=== PATIENT | male | born 1990 | race African-American/Black ===

== ENCOUNTER 2016-11-07 18:38 | Emergency (ER) | payer OTHER ==
[~2016-11-07] VITALS: Ht 170.2 cm; Wt 70.0 kg
[~2016-11-07 18:38] MED LIST: BENA25TA8 PO; CEPH500T PO
[2016-11-07 18:40] VITALS: BP 144/75; PULSE 72; RESP 15; TEMP 98; O2SAT 99
[2016-11-07] MEDS ORDERED: TETANUS/DIPHTHERIA TOXOID ADULT 0.5 ML VIAL IM ONE (19:45)
[2016-11-07] MEDS ORDERED: IBUPROFEN 800 MG TAB PO ONE (19:45)
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
== END 2016-11-07 21:17 | disposition home or self-care (01) ==
LOC: NEPK 18:38
DX: S80.02XA Contusion of left knee, initial encounter (principal); V43.52XA Car driver injured in collision with other type car in traffic accident, initial encounter; Y92.481 Parking lot as the place of occurrence of the external cause; Z72.0 Tobacco use
CPT/HCPCS: 73560; 99283

== ENCOUNTER 2017-06-26 11:43 | Emergency (ER) | payer SELFPAY ==
[~2017-06-26] VITALS: Ht 170.2 cm; Wt 80.0 kg
[2017-06-26 11:45] VITALS: BP 139/68; PULSE 64; RESP 17; O2SAT 98
[2017-06-26] MEDS ORDERED: TETANUS/DIPHTHERIA TOXOID ADULT 0.5 ML VIAL IM ONE (12:45)
[2017-06-26] MEDS ORDERED: ACETAMINOPHEN/HYDROcodone 325 MG/5 MG TAB PO ONE (12:45)
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
[2017-06-26] MEDS ORDERED: DALBAVANCIN INJ 1,500 MG in DEXTROSE 5% IN WATE 500 ML INJ 500 ML IV STA ×2 (13:04)
[2017-06-26] MEDS ORDERED: ASP: No known hypersensitivity to Vanco, Telavancin, Dalbavancin OTHER ONE (13:15)
[2017-06-26] MEDS ORDERED: ASP: Only reason for admit - IV antibiotics OTHER ONE (13:15)
[2017-06-26] MEDS ORDERED: ASP: Does not meet inpatient admission criteria OTHER ONE (13:15)
[2017-06-26] MEDS ORDERED: ASP: Location of Dalbavancin administration OTHER ONE (13:15)
[2017-06-26] MEDS ORDERED: MISCELLANEOUS PHARMACY INFORMATION XX ONE (13:15)
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
[2017-06-26] MEDS ORDERED: IBUP1TAB7 PO (14:11)
[2017-06-26] MEDS ORDERED: TRAM50TA PO (14:11)
[2017-06-26] MEDS ORDERED: ROBA500T PO (14:11)
== END 2017-06-26 14:49 | disposition home or self-care (01) ==
LOC: NEPD 11:43
DX: S02.2XXA Fracture of nasal bones, initial encounter for closed fracture (principal); S00.83XA Contusion of other part of head, initial encounter; R07.81 Pleurodynia; Z23 Encounter for immunization; Z72.0 Tobacco use; Y33.XXXA Other specified events, undetermined intent, initial encounter
CPT/HCPCS: 70450; 70486; 71045; 72125; 90471; 90714